=== PATIENT | male | born 1965 | race Caucasian/White ===

== ENCOUNTER 2022-06-01 18:00 | Outpatient (CLI) | payer BC | END 2022-06-01 18:01 | disposition home or self-care (01) | LOC: SLEEPLAB 18:00 | PROVIDERS: ATTEND Family Medicine | DX: G47.33 Obstructive sleep apnea (adult) (pediatric) (principal); R53.83 Other fatigue; G47.00 Insomnia, unspecified; E66.9 Obesity, unspecified; I10 Essential (primary) hypertension; R06.83 Snoring; Z68.31 Body mass index [BMI] 31.0-31.9, adult | CPT/HCPCS: 95800 ==

== ENCOUNTER 2024-10-08 14:34 | Outpatient (CLI) | payer BC | END 2024-10-08 14:35 | disposition home or self-care (01) | LOC: SCSRAD 14:34 | DX: R06.00 Dyspnea, unspecified (principal); M47.814 Spondylosis without myelopathy or radiculopathy, thoracic region; J84.9 Interstitial pulmonary disease, unspecified | CPT/HCPCS: 71046 ==

== ENCOUNTER 2025-08-03 06:33 | Day surgery (SDC) | payer BC ==
[2025-07-31 10:18] VITALS: BMI 30.8
== END 2025-08-03 08:02 | disposition home or self-care (01) ==
LOC: SDC 06:33
PROVIDERS: ATTEND Orthopaedic Surgery
PROC: 0LN70ZZ Release Right Hand Tendon, Open Approach (ICD-10-PCS; principal; 2025-08-03)
DX: M65.331 Trigger finger, right middle finger (principal); I10 Essential (primary) hypertension; Z88.1 Allergy status to other antibiotic agents; Z88.6 Allergy status to analgesic agent; Z88.8 Allergy status to other drugs, medicaments and biological substances
CPT/HCPCS: A6223; J3010